=== PATIENT | female | born 1940 | race Caucasian/White ===

== ENCOUNTER → 2016-06-24 | Outpatient (REF) | payer MEDICARE, OTHER ==
[2016-06-24 17:56] LABS: MEAN CORPUSCULAR HEMOGLOBIN 29.6 pg (27.0-33.0); MEAN CORPUSCULAR HGB CONC 33.6 g/dl (32.0-36.5); MEAN CORPUSCULAR VOLUME 87.9 fl (80.0-96.0); RED CELL DISTRIBUTION WIDTH 12.9 % (11.5-14.5); WHITE BLOOD COUNT 5.8 K/mm3 (4.0-10.0)
[2016-06-24 18:35] LABS: ALBUMIN 3.8 GM/DL (3.2-5.2); ALBUMIN/GLOBULIN RATIO 1.65 (1.00-1.93); ALKALINE PHOSPHATASE 99 U/L (45-117); ALT/SGPT 32 U/L (12-78); ANION GAP 7 MEQ/L (8-16); AST/SGOT 21 U/L (15-37); BILIRUBIN,TOTAL 0.5 MG/DL (0.2-1.0); BLOOD UREA NITROGEN 24 MG/DL (7-18); CALCIUM LEVEL 10.1 MG/DL (8.8-10.2); CARBON DIOXIDE LEVEL 31 MEQ/L (21-32); CHLORIDE LEVEL 105 MEQ/L (98-107); CHOLESTEROL LEVEL 126 MG/DL (<200); CREATININE FOR GFR 0.77 MG/DL (0.55-1.02); GLOMERULAR FILTRATION RATE > 60.0 (>39); GLUCOSE, FASTING 90 MG/DL (83-110); POTASSIUM SERUM 4.4 MEQ/L (3.5-5.1); SODIUM LEVEL 143 MEQ/L (136-145); TOTAL PROTEIN 6.1 GM/DL (6.4-8.2); TRIGLYCERIDES LEVEL 122 MG/DL (<150)
== END ==
LOC: M LABDRAWC 16:27
PROVIDERS: ATTEND Internal Medicine Cardiovascular Disease
DX: I11.9 Hypertensive heart disease without heart failure (principal); E78.00 Pure hypercholesterolemia, unspecified; I25.10 Atherosclerotic heart disease of native coronary artery without angina pectoris

== ENCOUNTER → 2016-08-18 | Outpatient (REF) | payer MEDICARE, OTHER ==
[2016-08-18 13:53] LABS: BACTERIA, URINE LARGE AMOUNT; RBC, URINE NONE SEEN /hpf (0-3); SQUAMOUS EPITHELIAL CELL URINE MOD AMOUNT /hpf (SMALL AMT)
[2016-08-18 13:54] LABS: TRANSITIONAL EPI CELLS, URINE SMALL AMOUNT /hpf; WBC, URINE 15-20 /hpf (0-3)
[2016-08-18 13:55] LABS: MICROSCOPIC EXAM PERFORMED
== END ==
LOC: M SMT 12:51
PROVIDERS: ATTEND Specialist
DX: R39.15 Urgency of urination (principal); R35.0 Frequency of micturition; N34.2 Other urethritis
CPT/HCPCS: 51798; 81002; 87086; G0463

== ENCOUNTER → 2016-08-20 | Outpatient (REF) | payer MEDICARE, OTHER | LOC: M SMT 16:44 | PROVIDERS: ATTEND Specialist | DX: R35.0 Frequency of micturition (principal) ==

== ENCOUNTER → 2016-09-02 | Outpatient (REF) | payer MEDICARE, OTHER | LOC: M SMT 15:31 | PROVIDERS: ATTEND Specialist | DX: N39.0 Urinary tract infection, site not specified (principal) ==

== ENCOUNTER → 2016-09-09 | Outpatient (CLI) | payer MEDICARE, OTHER ==
[2016-09-09 18:07] LABS: ANION GAP 5 MEQ/L (8-16); BLOOD UREA NITROGEN 23 MG/DL (7-18); CALCIUM LEVEL 9.8 MG/DL (8.8-10.2); CARBON DIOXIDE LEVEL 31 MEQ/L (21-32); CHLORIDE LEVEL 105 MEQ/L (98-107); CREATININE FOR GFR 0.81 MG/DL (0.55-1.02); GLOMERULAR FILTRATION RATE > 60.0 (>39); GLUCOSE, FASTING 97 MG/DL (83-110); POTASSIUM SERUM 4.3 MEQ/L (3.5-5.1); SODIUM LEVEL 141 MEQ/L (136-145)
== END ==
LOC: M SMT 14:41
PROVIDERS: ATTEND Specialist
DX: R35.0 Frequency of micturition (principal)
CPT/HCPCS: 36415; 80048; G0463

== ENCOUNTER → 2016-09-19 | Outpatient (CLI) | payer MEDICARE, OTHER ==
[~2016-09-19] MED LIST: ISOVUE-370 76% 100ML VIAL (Q9967) As Ordered ONE
--- NOTE | 2016-09-19 14:35 | REP ---
CT ABDOMEN AND PELVIS WITHOUT AND WITH CONTRAST (CT UROGRAM) 09/19/2016. Clinical history: Urinary frequency, urethritis, cystitis, right lower quadrant abdominal abscess. Technique: Scanning through the abdomen and pelvis before IV contrast with a bolus of 100 mL Isovue 370 scanning through the abdomen pelvis and with 8 minute delay rescanning. Coronal and sagittal reconstructions for CT urogram performed. Findings:CT abdomen: The lung bases are clear. Heart is not enlarged. There is no pericardial thickening or effusion. There is a small hiatal hernia present. The liver, spleen and adrenal glands are without a mass. Right hepatic lobe is mildly enlarged with a vertical diameter of 18.6 cm. There is no focal hepatic lesion, splenic mass or splenomegaly. Gallbladder shows no calcified stone or mass. No adjacent ascites. Stomach shows some thickening of the antral wall and into the first portion of duodenum, but no mass or other wall thickening likely suggests some mild gastritis or duodenitis. Moderate stool throughout the colon from rectum to sigmoid without colitis or diverticulitis. Small bowel loops fluid-filled but not abnormally dilated. Lung window review of all CT slices abdomen and pelvis show no free air or perforation. The aorta has tortuosity and calcifications without aneurysm or dissection. Pancreas shows no mass. The pancreatic duct is about 2 mm. There is no ventral hernia or umbilical hernia. The right kidney shows an upper pole cyst at 2.5 cm. There is no other cyst, solid mass, stone, hydronephrosis or hydroureter. No ureteral dilatation or stone on either side. The bone windows show facet arthritis lumbar spine with vacuum phenomenon at disc space narrowing at L2-3 and L3-4 narrowing at all other levels and lesser degenerative changes at those. There are also thoracic degenerative disc changes without compression deformity. No spondylolysis or spondylolisthesis. The visualized ribs were unremarkable. CT pelvis: There is a sclerotic focus in the acetabular roof on the left which could be a bone island. Remainder of the iliac bones showed only a tiny bone island in the right with the acetabuli showing rim osteophyte formation. Pubic rami and pubic symphysis were with only minimal degenerative change. Hips without fracture and only minor degenerative change. There is some focal thickening of the bladder wall posteriorly without any bladder stone or mass. The distal ureters show normal course and caliber to the bladder and without stone and show normal filling with contrast on the delayed images and reconstructed urogram. There is no ventral or inguinal hernia nor pathologic sized inguinal adenopathy. Diverticulosis distal left colon and sigmoid without diverticulitis, colitis, stricture or mass. Small bowel loops grossly intact. There are a few pelvic phleboliths evident. Impression: 1. Some thickening irregularity posterior wall of the bladder with its irregular margins. The uterus is grossly intact and anteverted. 2. No definite adnexal mass or pelvic free fluid and no adenopathy or free air. 3. Diverticulosis without diverticulitis distal left colon and sigmoid. 4. No hydronephrosis, hydroureter, renal or ureteral stone, solid or cystic mass in the kidneys or other acute finding. Mild to moderate constipation. Degenerative changes in the spine. Simple cyst upper pole right kidney. Signed by Angelito Hodge MD 09/19/2016 03:07 P
== END ==
LOC: M RAD 10:33
PROVIDERS: ATTEND Specialist
DX: R35.0 Frequency of micturition (principal); R10.9 Unspecified abdominal pain
CPT/HCPCS: 74178; Q9967

== ENCOUNTER → 2016-10-08 | Outpatient (REF) | payer MEDICARE, OTHER | LOC: M SMT 17:19 | PROVIDERS: ATTEND Specialist | DX: R35.0 Frequency of micturition (principal) | CPT/HCPCS: 52000; 87088; 87186; 88108; G0463 ==

== ENCOUNTER → 2016-10-09 | Outpatient (REF) | payer MEDICARE, OTHER ==
[2016-10-09 12:51] LABS: VITAMIN B12 LEVEL 332 PG/ML (247-911)
[2016-10-09 12:56] LABS: FREE T4 1.02 NG/DL (0.76-1.46)
== END ==
LOC: M SFHCCLAY 09:12
PROVIDERS: ATTEND Family Medicine
DX: R41.3 Other amnesia (principal)
CPT/HCPCS: 82607; 84439; 84443; 86780; G0463

== ENCOUNTER → 2016-11-17 | Outpatient (CLI) | payer MEDICARE, OTHER ==
--- NOTE | 2016-11-17 10:17 | REP ---
KUB ABDOMEN AND PELVIS: Two KUB films of abdomen and pelvis performed. Moderate fecal material is seen throughout the colon. No significantly dilated small bowel loops are seen. There are multiple phleboliths in the pelvis. Focal sclerotic density in the left inferior iliac bone probably represents a bone island. There are degenerative changes of the spine with curvature toward the right. IMPRESSION: Moderate fecal retention.
== END ==
LOC: M CLY 08:28
PROVIDERS: ATTEND Family Medicine
DX: K59.09 Other constipation (principal)

== ENCOUNTER → 2017-05-13 | Outpatient (REF) | payer MEDICARE, OTHER | LOC: M SFHCCLAY 08:43 | PROVIDERS: ATTEND Family Medicine | DX: E53.8 Deficiency of other specified B group vitamins (principal) ==

== ENCOUNTER → 2017-07-09 | Outpatient (REF) | payer MEDICARE, BC ==
[2017-07-09 12:38] LABS: HEMATOCRIT 39.8 % (36.0-47.0); HEMOGLOBIN 12.8 g/dl (12.0-16.0); MEAN CORPUSCULAR HEMOGLOBIN 28.4 pg (27.0-33.0); MEAN CORPUSCULAR HGB CONC 32.2 g/dl (32.0-36.5); MEAN CORPUSCULAR VOLUME 88.4 fl (80.0-96.0); PLATELET COUNT, AUTOMATED 293 10^3/uL (150-450); RED CELL DISTRIBUTION WIDTH 14.1 % (11.5-14.5); WHITE BLOOD COUNT 5.6 10^3/uL (4.0-10.0)
[2017-07-09 13:54] LABS: ALBUMIN 3.7 GM/DL (3.2-5.2); ALBUMIN/GLOBULIN RATIO 1.42 (1.00-1.93); ALKALINE PHOSPHATASE 121 U/L (45-117); ALT/SGPT 32 U/L (12-78); ANION GAP 5 MEQ/L (8-16); AST/SGOT 24 U/L (7-37); BILIRUBIN,TOTAL 0.4 MG/DL (0.2-1.0); BLOOD UREA NITROGEN 22 MG/DL (7-18); CALCIUM LEVEL 9.3 MG/DL (8.8-10.2); CARBON DIOXIDE LEVEL 31 MEQ/L (21-32); CHLORIDE LEVEL 105 MEQ/L (98-107); CHOLESTEROL LEVEL 125 MG/DL (<200); CHOLESTEROL RISK RATIO 2.118 (<5); CREATININE FOR GFR 0.75 MG/DL (0.55-1.30); GLOMERULAR FILTRATION RATE > 60.0 (>39); GLUCOSE, FASTING 96 MG/DL (70-100); HDL CHOLESTEROL 59 MG/DL (>40); LDL CHOLESTEROL 48.8 MG/DL (<100); NON-HDL-C 66 MG/DL; POTASSIUM SERUM 4.7 MEQ/L (3.5-5.1); SODIUM LEVEL 141 MEQ/L (136-145); TOTAL PROTEIN 6.3 GM/DL (6.4-8.2); TRIGLYCERIDES LEVEL 86 MG/DL (<150)
== END ==
LOC: M LABDRAWC 11:32
DX: E78.00 Pure hypercholesterolemia, unspecified (principal); I25.10 Atherosclerotic heart disease of native coronary artery without angina pectoris; I11.9 Hypertensive heart disease without heart failure
CPT/HCPCS: 80053

== ENCOUNTER → 2017-11-27 | Outpatient (REF) | payer MEDICARE, BC ==
[2017-12-03 10:13] LABS: VITAMIN B1 LEVEL WHOLE BLOOD 144.8 nmol/L (66.5-200.0); VITAMIN B6,PYRIDOXAL PHOSPHATE 7.7 ug/L (2.0-32.8); VITAMIN E(ALPHA TOCOPHEROL) 15.4 mg/L (9.0-29.0); VITAMIN E(GAMMA TOCOPHEROL) 0.3 mg/L (0.5-4.9)
== END ==
LOC: M LABDRAWC 16:13
DX: E53.8 Deficiency of other specified B group vitamins (principal); E07.9 Disorder of thyroid, unspecified; F03.90 Unspecified dementia, unspecified severity, without behavioral disturbance, psychotic disturbance, mood disturbance, and anxiety
CPT/HCPCS: 84446

== ENCOUNTER → 2018-03-29 | Outpatient (REF) | payer MEDICARE, BC ==
[2018-03-29 12:33] LABS: HEMATOCRIT 42.5 % (36.0-47.0); HEMOGLOBIN 13.6 g/dl (12.0-15.5); MEAN CORPUSCULAR HEMOGLOBIN 28.8 pg (27.0-33.0); MEAN CORPUSCULAR VOLUME 89.9 fl (80.0-96.0); PLATELET COUNT, AUTOMATED 284 10^3/uL (150-450); RED BLOOD COUNT 4.73 10^6/uL (4.00-5.40); RED CELL DISTRIBUTION WIDTH 13.9 % (11.5-14.5); WHITE BLOOD COUNT 6.6 10^3/uL (4.0-10.0)
[2018-03-29 12:55] LABS: ALBUMIN 3.5 GM/DL (3.2-5.2); ALBUMIN/GLOBULIN RATIO 1.25 (1.00-1.93); ALKALINE PHOSPHATASE 127 U/L (45-117); ALT/SGPT 29 U/L (12-78); ANION GAP 6 MEQ/L (8-16); AST/SGOT 23 U/L (7-37); BILIRUBIN,TOTAL 0.4 MG/DL (0.2-1.0); BLOOD UREA NITROGEN 20 MG/DL (7-18); CALCIUM LEVEL 9.5 MG/DL (8.8-10.2); CARBON DIOXIDE LEVEL 30 MEQ/L (21-32); CHLORIDE LEVEL 107 MEQ/L (98-107); CHOLESTEROL LEVEL 119 MG/DL (<200); CHOLESTEROL RISK RATIO 2.479 (<5); CREATININE FOR GFR 0.84 MG/DL (0.55-1.30); GLOMERULAR FILTRATION RATE > 60.0 (>39); GLUCOSE, FASTING 97 MG/DL (70-100); HDL CHOLESTEROL 48 MG/DL (>40); LDL CHOLESTEROL 57 MG/DL (<100); NON-HDL-C 71 MG/DL; POTASSIUM SERUM 4.8 MEQ/L (3.5-5.1); SODIUM LEVEL 143 MEQ/L (136-145); TOTAL PROTEIN 6.3 GM/DL (6.4-8.2); TRIGLYCERIDES LEVEL 71 MG/DL (<150)
== END ==
LOC: M SFHCCLAY 08:18
DX: I25.10 Atherosclerotic heart disease of native coronary artery without angina pectoris (principal); M81.0 Age-related osteoporosis without current pathological fracture; G30.1 Alzheimer's disease with late onset
CPT/HCPCS: 84443

== ENCOUNTER → 2019-02-01 | Outpatient (REF) | payer MEDICARE, BC ==
[2019-02-02 12:08] LABS: PTH INTACT 119.6 PG/ML (18.5-88.0); TOTAL 25(OH) VITAMIN D 32.2 NG/ML (30.0-100.0)
== END ==
LOC: M SFHCCLAY 14:09
PROVIDERS: ATTEND Family Medicine
DX: M81.0 Age-related osteoporosis without current pathological fracture (principal)
CPT/HCPCS: 82306; 82310; 83970; G0463

== ENCOUNTER → 2019-04-01 | Outpatient (REF) | payer MEDICARE, BC ==
[2019-04-01 18:04] LABS: HEMATOCRIT 41.8 % (36.0-47.0); HEMOGLOBIN 13.2 g/dl (12.0-15.5); MEAN CORPUSCULAR HEMOGLOBIN 29.1 pg (27.0-33.0); MEAN CORPUSCULAR HGB CONC 31.6 g/dl (32.0-36.5); MEAN CORPUSCULAR VOLUME 92.3 fl (80.0-96.0); PLATELET COUNT, AUTOMATED 273 10^3/uL (150-450); RED BLOOD COUNT 4.53 10^6/uL (4.00-5.40); WHITE BLOOD COUNT 6.7 10^3/uL (4.0-10.0)
[2019-04-01 18:10] LABS: BLOOD UREA NITROGEN 16 MG/DL (7-18); CALCIUM LEVEL 9.5 MG/DL (8.8-10.2); CARBON DIOXIDE LEVEL 32 MEQ/L (21-32); CHLORIDE LEVEL 105 MEQ/L (98-107); CREATININE FOR GFR 0.79 MG/DL (0.55-1.30); GLOMERULAR FILTRATION RATE > 60.0 (>32); GLUCOSE, FASTING 82 MG/DL (70-100); POTASSIUM SERUM 4.3 MEQ/L (3.5-5.1); SODIUM LEVEL 141 MEQ/L (136-145)
== END ==
LOC: M LABDRAWC 17:13
PROVIDERS: ATTEND Physician Assistant
DX: I25.10 Atherosclerotic heart disease of native coronary artery without angina pectoris (principal); I11.9 Hypertensive heart disease without heart failure; Z23 Encounter for immunization
CPT/HCPCS: 36415; 80048; 85027; 90682; G0008

== ENCOUNTER → 2019-07-11 | Outpatient (REF) | payer MEDICARE, BC ==
[2019-07-11 17:23] LABS: ALBUMIN 3.8 GM/DL (3.2-5.2); ALT/SGPT 27 U/L (12-78); BILIRUBIN,TOTAL 0.5 MG/DL (0.2-1.0); BLOOD UREA NITROGEN 19 MG/DL (7-18); CALCIUM LEVEL 9.5 MG/DL (8.8-10.2); CARBON DIOXIDE LEVEL 31 MEQ/L (21-32); CHLORIDE LEVEL 104 MEQ/L (98-107); CHOLESTEROL LEVEL 132 MG/DL (<200); CREATININE FOR GFR 0.84 MG/DL (0.55-1.30); GLOMERULAR FILTRATION RATE > 60.0 (>32); GLUCOSE, FASTING 84 MG/DL (70-100); HDL CHOLESTEROL 66 MG/DL (>40); LDL CHOLESTEROL 52 MG/DL (<100); NON-HDL-C 66 MG/DL; POTASSIUM SERUM 4.6 MEQ/L (3.5-5.1); SODIUM LEVEL 140 MEQ/L (136-145); TOTAL PROTEIN 6.5 GM/DL (6.4-8.2); TRIGLYCERIDES LEVEL 68 MG/DL (<150)
== END ==
LOC: M SFHCCLAY 12:04
PROVIDERS: ATTEND Family Medicine
DX: I25.10 Atherosclerotic heart disease of native coronary artery without angina pectoris (principal); I69.30 Unspecified sequelae of cerebral infarction; G30.1 Alzheimer's disease with late onset; F02.80 Dementia in other diseases classified elsewhere, unspecified severity, without behavioral disturbance, psychotic disturbance, mood disturbance, and anxiety

== ENCOUNTER 2020-05-22 15:39 | Inpatient (IN) | payer MEDICARE, BC ==
[~2020-05-22] VITALS: Ht 157.5 cm; Wt 58.9 kg
[2020-05-22 17:48] LABS: BASO # 0.1 10^3/uL (0.0-0.2); BASO % 0.8 % (0.0-1.0); EOS # 0.1 10^3/uL (0.0-0.5); EOS % 1.8 % (0.0-3.0); HEMOGLOBIN 13.8 g/dl (12.0-15.5); LYMPH # 1.3 10^3/uL (1.5-5.0); LYMPH % 16.6 % (24.0-44.0); MEAN CORPUSCULAR HEMOGLOBIN 28.1 pg (27.0-33.0); MEAN CORPUSCULAR HGB CONC 31.4 g/dl (32.0-36.5); MEAN CORPUSCULAR VOLUME 89.6 fl (80.0-96.0); MONO # 0.7 10^3/uL (0.0-0.8); MONO % 8.3 % (0.0-5.0); NEUTROPHILS # 5.7 10^3/uL (1.5-8.5); NEUTROPHILS % 72.2 % (36.0-66.0); PLATELET COUNT, AUTOMATED 287 10^3/uL (150-450); RED BLOOD COUNT 4.91 10^6/uL (4.00-5.40); WHITE BLOOD COUNT 7.9 10^3/uL (4.0-10.0)
--- NOTE | 2020-05-22 17:57 | REP ---
INDICATION: AMS. COMPARISON: None. TECHNIQUE: Single AP view performed portably with the patient upright. FINDINGS: The lung ferrer are clear. Cardiac size is normal. The luc, mediastinum and skeletal structures are unremarkable except for thoracic scoliosis.. IMPRESSION: Essentially negative PA and lateral chest <Electronically signed by Bethel Alejo > 05/22/20 [id number]
[2020-05-22 18:15] LABS: BLOOD UREA NITROGEN 16 MG/DL (7-18); CALCIUM LEVEL 9.7 MG/DL (8.8-10.2); CARBON DIOXIDE LEVEL 30 MEQ/L (21-32); CHLORIDE LEVEL 107 MEQ/L (98-107); CK-MB VALUE MASS 3.2 NG/ML (<3.6); CPK CREATINE PHOSPHOKINASE 96 U/L (26-192); CREATININE FOR GFR 0.87 MG/DL (0.55-1.30); GLOMERULAR FILTRATION RATE > 60.0 (>32); GLUCOSE, FASTING 97 MG/DL (70-100); MB/CK RELATIVE INDEX 3.33 (< OR =4); POTASSIUM SERUM 4.3 MEQ/L (3.5-5.1); SODIUM LEVEL 142 MEQ/L (136-145); THYROID STIMULATING HORMONE 0.753 uIU/ML (0.358-3.740); TROPONIN I 0.02 NG/ML (< 0.10)
[2020-05-22] MEDS ORDERED: CYAN100050 PO (19:02)
[2020-05-22] MEDS ORDERED: LISI-542 PO (19:02)
[2020-05-22] MEDS ORDERED: D31000TA2 PO (19:02)
[2020-05-22] MEDS ORDERED: DONE10TA90 PO (19:02)
[2020-05-22] MEDS ORDERED: ASPI1TAB8 PO (19:02)
[2020-05-22] MEDS ORDERED: ATOR80TA59 PO (19:02)
[2020-05-22] MEDS ORDERED: VITA-158 PO (19:02)
[2020-05-22] MEDS ORDERED: OCUVTAB4 PO (19:02)
[2020-05-22] MEDS ORDERED: QUET5TAB PO (19:08)
[2020-05-22] MEDS ORDERED: META28.32 PO (19:08)
[2020-05-22] MEDS ORDERED: MEMA10TA19 PO (19:08)
[2020-05-22] MEDS ORDERED: MIRA3350 PO (19:08)
[2020-05-22 20:04] LABS: RSV AMPLIFICATION NEGATIVE (NEGATIVE)
--- NOTE | 2020-05-22 20:45 | HPEPDOC ---
[facility] Medical History & Physical Date of Admission May 22, 2020 Date of Service: May 22, 2020 Primary Care Physician: Raj Holm MD Attending Physician: DANNA MIMS MD History and Physical CHIEF COMPLAINT: Worsening behavioral problems with progressing dementia HISTORY OF PRESENT ILLNESS: Rosetta is an 80yo female w/ notable PMHx of dementia, cad s/p AR w/ LAD stents, htn, osteoporosis s/p non-displaced hip fracture, who presented to the ED on 05/22/2020 after being brought in by her Demar due to increasing frequency of behavioral problems in the setting of progressive dementia. For the past 2-3 years, patient's overall function has steadily decreased, while her dementia symptoms have progressed. Her pcp, Dr. Holm, along with her neurologist, Dr. Vicente, currently diagnosed patient with dementia and epic collaborating on treatment. In the recent past, she was started on Seroquel and had been taking three quarters of a 50 mg tablet daily. Seroquel at seem to work, but patient continued to have contentious episodes, most associated with personal care (bat alex, dressing) and just 4 days ago (05/18/20), Dr. Holm recommended patient switch to a full dose 50 mg Seroquel tablets daily. Patient's reports that initially going to the full dose work for couple days, but then patient's symptoms worsened. For example, early this morning after taking her Seroquel dose, she had very positive experience with no symptoms while being seen at [facility], but soon after returning home, she started to become combative and symptomatic again, repeatedly stating, "I don't want to live here anymore." Just prior to going to the full 50 mg dose, patient spontaneously vacated her home and walked aimlessly in the neighborhood before being brought back to the house by local police. Per the patient's , PE, along with the patient's 3 adult children, all recognize patient's deterioration and are in favor of hospitalization and possible placement. The patient's provided most of HPI. Upon presentation to the ED, patient was hypertensive with initial blood pressure 190/102, that's subsequently improved to 171/85. She is also afebrile and slightly bradycardic. CBC and BMP were relatively unremarkable, while chest x-ray was negative for acute pathology, TSH was wnl, and cardiac markers were unremarkable. A urinalysis was positive for UTI with pending reflex culture. She was subsequently admitted under the care of the hospitalist service primarily for continued monitoring in the setting of her encephalopathy secondary to progressive dementia and her evaluation for potential placement/home health options. Of note, patient's Demar reports that he is both her healthcare proxy and power of corporate associate attorney, and the patient at this point is full code. PAST MEDICAL HISTORY: Coronary artery disease, status post myocardial infarction on 01/26/2015, with stent placement x2 in left anterior descending coronary artery. History of falls with last known fall occurring 5 months ago (12/08/19) Hypertension Dementia secondary to presumed Alzheimer's disease on both amantadine and donepezil Osteoporosis status post nondisplaced hip fracture. Vitamin D deficiency. History of tubular adenomas on October 2013. Colonoscopy. 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 Sebaceous cyst. Rectocele with use of vaginal pessary as recommended by gynecology In addition to her PCP and neurologist, she also falls as outpatient with reports developer in [place] (Dr. Marie), ophthalmology (Dr. 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 Bilateral cataract surgery in January and February 2010. Unspecified back surgery 2000. Detached retina surgery on 08/30/12 SOCIAL HISTORY: Patient is and currently lives with her Demar on [address] in the [facility]. She and her have 3 adult children - - 2 of whom live in [place] and the third lives in [facility]. No current or former history of tobacco product, alcohol, or illicit drug use. FAMILY HISTORY: Father: , heart attack while in his 70s. Mother: , live to mid 80s, CVA and hypertension Patient has 2 brothers and one sister. Patient has 2 daughters and 1 son. One daughter had unspecified cancers. Throat pathology, which was addressed and subsequently resolved. ALLERGIES: Please see below. REVIEW OF SYSTEMS: *Important to take pt's ROS responses in context of her progressing dementia CONSTITUTIONAL: Denies recent unintentional change in weight, fevers, chills, or night sweats EYES: Denies visual changes or eye pain ENT: Denies runny nose, ear pain, tinnitus, sore throat, dysphagia,or odynophasia CARDIOVASCULAR: Denies chest pain, chest pressure, or palpitations. RESPIRATORY: Denies cough, shortness of breath, or sputum production GASTROINTESTINAL: Denies abdominal pain, nausea, vomiting, diarrhea, constipation, or blood in the stool GENITOURINARY: Denies hematuria or dysuria NEUROLOGY: Denies dizziness, lightheadedness, gait instability/balance issues, any changes to sight/smell/hearing/taste, or LOC HEMATOLOGIC: Denies easy bleeding or bruising LYMPHATIC: Denies any new lumps or bumps anywhere HOME MEDICATIONS: Please see below. PHYSICAL EXAMINATION: VITAL SIGNS: Temperature 98.7, pulse 80, respiratory rate , blood pressure, 171/85, pulse oximetry 98 % on room air. GENERAL APPEARANCE: Elderly female who appears restless at times d uring exam, particularly when addressing her or when her speaks. She is calm and significantly more approachable when we speak with her directly and the is not involved. She is alert and oriented to self only and struggles to maintain thought and form coherent, articulate responses to non- basic/standard questions. No acute distress. HEENT: Normocephalic, atraumatic. Noninjected, anicteric sclera. No significant conjunctival pallor appreciated. Mucous membranes appear somewhat dry. There is no pharyngeal erythema or exudate. NECK: Trachea is midline. Neck is supple. No lymphadenopathy appreciated. CARDIOVASCULAR: Regular rate and regular rhythm. Normal S1, S2. No murmurs appreciated. LUNGS: Clear to auscultation bilaterally with no adventitious breath sounds appreciated. Good respiratory effort. Symmetric chest expansion. Breathing room air. Speaking full sentences. ABDOMEN: Normoactive bowel sounds throughout. Soft, nontender and nondistended. No guarding or rigidity. MUSCULOSKELETAL: 5 out of 5 muscle strength testing of upper and lower extremities bilaterally. EXTREMITIES: Bilateral lower extremities are free of edema. There is some midshin anterior tibial hyperpigmentation bilaterally consistent with prior contusion/ecchymosis.. There are both MCP and DIP arthritic changes of hands bilaterally. NEUROLOGICAL: Patient is awake, alert and oriented to self only. She struggles to complete train of thought and articulate answers to most non-basic exam qu estions and commands. She also struggles with exam commands that involved some deeper thought such as dysdiadochokinesis and [id number] testing. She is ambulating without any issue. Speech is not dysarthric. Short-term memory recall is poor as well. No cogwheel rigidity, resting tremor, or abnormal facial movements were appreciated. PSYCHIATRIC: Verbally confrontational towards , but is pleasant with all others. When not interacting with , her mood is pleasant. LABORATORY DATA: Please see below. IMAGING: Upright (1 view) portable CXR, 05/22/2020- FINDINGS: The lung ferrer are clear. Cardiac size is normal. The luc, mediastinum and skeletal structures are unremarkable except for thoracic scoliosis.. IMPRESSION: Essentially negative PA and lateral chest MICROBIOLOGY: Please see below. ASSESSMENT & PLAN: 80yo female w/ notable medical h/o progressive dementia 2/2 presumed Alzheimer's, CAD s/p AR and LAD stents, htn, osteoporosis who presented to [facility] ED on 05/22/2020 after being brought in by her due to increased frequency of behavioral issues related to progressive dementia. She had been having some success as outpatient with Seroquel but symptoms recently have continued to recur and family is concerned for patient safety and agreement that evaluation for possible placement is warranted. #Encephalopathy, likely secondary to progressive dementia from Alzheimer's disease -home seroquel was not continued upon admission as pt continues to have increased frequency of behavior sxs. Olanzapine was ordered to perhaps better address behaviors. -while dementia from presumed Alzheimer's has likely progressed to moderate/severe ramge, home donepezil and memantine were continued. Upon discharge/placement, warranted to assess efficacy and continuation of outpt AD medications in setting of progressing/advanced dementia. -Pt remained calm upon arrival to the floor and was resting without issue. Should she have issues maintaining or initiating sleep, consider adding rozerem -sitter ordered -PFS/Case management consult placed to assess for possible placement/care options upon discharge -Vitamin B1, B12, and RPR ordered to rule-out as possible etiologies contributing to dementia. In ED, lytes and TSH were wnl, while CXR was unremarkable. UA showed UTI with reflex UCx pending; pt asymptomatic at this time and this could also represent chronic colonization -in setting of increased behaviors and h/o falls, fall risk precautions and assisted ambulation ordered -due to advanced dementia pts sometimes being unable to articulate pain sxs, prn tylenol ordered #Hypertension -Pt has h/o htn for which she takes 5 mg lisinopril as outpt; this was continued upon admission and scheduled low-dose amlodipine added as well. -BMP, lytes and TSH were unremarkable upon presentation -2g Na diet ordered #Asymptomatic UTI -UA showed positive nitrites and 1+ UBac. UCx is pending. Pt is afebrile and has NL WBC. With advanced dementia in elderly female without sxs, pharmacotherapy deferred at this time. -Upon review, no lifetime summary of chronic UCx results in emr. #CAD s/p AR and LAD stent -Home high intensity statin and daily 81 mg ASA continued #H/o Osteoporosis s/p non-displaced hip fracture with vitamin D deficiency -pt also has h/o falls, so fall risk precautions and assisted ambulation only ordered #DVT prophylaxis: Lovenox Disposition: Pending social work nurse/PFS evaluation and assistance in pursuing possible placement/home health Vital Signs Vital Signs Date Time Temp Pulse Resp B/P (MAP) Pulse Ox O2 Delivery O2 Flow Rate FiO2 05/22/20 18:24 57 05/22/20 17:00 05/22/20 15:40 98.7 20 98 Room Air Laboratory Data Labs 24H Laboratory Tests 2 05/22/20 17:33: Anion Gap 5L, Glomerular Filtration Rate > 60.0, Calcium Level 9.7, Total Creatine Kinase 96, Creatine Kinase MB 3.2, Creatine Kinase MB Relative Index 3.33, Troponin I 0.02, Thyroid Stimulating Hormone (TSH) 0.753 05/22/20 17:34: Immature Granulocyte % (Auto) 0.3, Neutrophils (%) (Auto) 72.2H, Lymphocytes (%) (Auto) 16.6L, Monocytes (%) (Auto) 8.3H, Eosinophils (%) (Auto) 1.8, Basophils (%) (Auto) 0.8, Neutrophils # (Auto) 5.7, Lymphocytes # (Auto) 1.3L, Monocytes # (Auto) 0.7, Eosinophils # (Auto) 0.1, Basophils # (Auto) 0.1, Nucleated Red Blood Cells % (auto) 0.0, Urine Color YELLOW, Urine Appearance CLEAR, Urine pH 5.0, Urine Specific [place] 1.021, Urine Protein 1+H, Urine Glucose (UA) NEGATIVE, Urine Ketones NEGATIVE, Urine Blood NEGATIVE, Urine Nitrite POSITIVEH, Urine Bilirubin NEGATIVE, Urine Urobilinogen 0.2, Urine Leukocyte Esterase NEGATIVE, Urine WBC (Auto) 10H, Urine RBC (Auto) 0, Urine Hyaline Casts (Auto) 0, Urine Bacteria (Auto) 1+H, Urine Squamous Epithelial Cells 0, Urine Mucus (Auto) SMALL, Urine Sperm (Auto) 05/22/20 18:56: Coronavirus (COVID-19)(PCR) NEGATIVE, Influenza Type A (RT-PCR) NEGATIVE, Influenza Type B (RT-PCR) NEGATIVE, Respiratory Syncytial Virus (PCR) NEGATIVE CBC/BMP Laboratory Tests 05/22/20 17:33 05/22/20 17:34 Microbiology Microbiology 05/22/20 Urine Culture, Received Pending Home Medications Scheduled Ascorbic Acid (Vitamin C) 500 Mg Tablet, 500 MG PO DAILY Aspirin (Aspirin EC) 81 Mg Tablet.dr, 81 MG PO QHS Atorvastatin Calcium (Atorvastatin Calcium) 80 Mg Tablet, 80 MG PO QHS Cholecalciferol (Vitamin D3) (Vitamin D3) 1,000 Unit Tablet, 1,000 UNITS PO DAILY Cyanocobalamin (Vitamin B-12) (Vitamin B-12) 1,000 Mcg Tablet, 1,000 MCG PO QPM Donepezil HCl (Donepezil HCl) 10 Mg Tablet, 10 MG PO QHS Lisinopril (Lisinopril) 5 Mg Tablet, 5 MG PO QHS Memantine HCl (Memantine HCl) 10 Mg Tablet, 10 MG PO BID Polyethylene Glycol 3350 (Miralax) 119 Gm Powder, 6 GM PO DAILY dilute in 8 ounces of water or juice Psyllium Husk (with Sugar) (Metamucil Powder) 575 Gm Powder, 1 PKT PO BID Quetiapine Fumarate (Quetiapine Fumarate) 50 Mg Tablet, 50 MG PO BID TRIAL MEDICATION PER PT'S AND , HAS ONLY BEEN TAKING FOR A FEW DAYS Vit A/Vit C/Vit E/Zinc/Copper (Preservision Areds Tablet) 1 Each Tablet, 1 TAB PO BID Allergies Coded Allergies: No Known Allergies (Unverified , 05/22/20) A-FIB/CHADSVASC A-FIB History Current/History of A-Fib/PAF?: No Current PO Anticoag Therapy: No GME ATTESTATION GME ATTESTATION My faculty preceptor for this patient encounter was physically present during the encounter and was fully available. All aspects of the patient interview, examination, medical decision making process, and medical care plan development were reviewed and approved by the faculty preceptor. The faculty preceptor is aware and concurs with the plan as stated in the body of this note and will attest to such by his/her cosignature. ATTENDING NOTE TIME OF SERVICE 825PM is an 80 yr old w a hx of CAD w LAD stent, osteoporosis and Alzheimer's dementia who was brought to the hospital by her for evaluation because she has been displaying violent behavior and wandering. She was recently started on quetiapine for her dementia associated behavioral issues, but her doesn't feel like her behavior has improved. Her physical exam was unremarkable except for anxiety and teariness. CT of the head, chest xray, respiratory panel & TSH were unrevealing. She will be admitted for evaluation of encephalopathy likely due to worsening dementia, but we will r/o other acute causes. She also has uncontrolled HTN; her SBP was in the 190s on arrival in the ER Plan: admit to medical floor / switch from quetiapine 50mg BID to olanzapine 2.5 mg BID / f/u B1, B12 / f/u w PFS for possible placement / add amlodipine 2.5mg daily and c/w lisinopril 10mg PO QHS rest per ' H&P KENYETTA MENDES D.O. May 22, 2020 20:44 DANNA MIMS MD May 22, 2020 20:59
[2020-05-22] MEDS: ATORVASTATIN 20 MG TAB PO SCH (21:00)
[2020-05-22] MEDS: lisinopriL 5 MG TAB PO SCH (21:00)
[2020-05-22] MEDS: ASPIRIN 81 MG ENTERIC TAB PO SCH (21:00)
[2020-05-22] MEDS ORDERED: MAALOX 30 ML SUSP *UDC PO PRN (21:30)
[2020-05-22] MEDS ORDERED: ACETAMINOPHEN TAB 650MG DOSE (2X325MG) PO PRN (21:30)
[2020-05-22] MEDS ORDERED: MOM 30ML SUSPENSION UDC PO PRN (21:30)
[2020-05-22 22:15] LABS: VITAMIN B12 LEVEL 1458 PG/ML (247-911)
[2020-05-22 23:47] VITALS: BP 170/81
[2020-05-23] MEDS: OCUVITE 1 TAB PO SCH ×3 (00:04→20:03)
[2020-05-23] MEDS: MEMANTINE 5MG TABLET (NAMENDA) PO SCH ×3 (00:04→20:03)
[2020-05-23] MEDS: DONEPEZIL 5 MG TAB PO SCH ×2 (00:05→20:03)
[2020-05-23] MEDS: OLANZapine 2.5MG TABLET PO SCH ×3 (00:05→20:03)
[2020-05-23] MEDS: METAMUCIL (PSYLLIUM) PACKET PO SCH ×3 (00:05→20:02)
[2020-05-23 06:00] VITALS: BP 123/76
--- NOTE | 2020-05-23 07:50 | ECGEPIP ---
[facility] - ED Test Date: 2020-05-22 Pat Name: MILTON MATHIAS Department: Room: [place] [address] Gender: Female Ssn/Ssbn Assistant Navigator: NISREEN : 1940 Requested By: Brendon Mcdonald Order Number: [id number] Reading MD: Brendon Woods Measurements Intervals [place] Rate: 53 P: 46 OK: 171 QRS: -5 QRSD: 80 T: 22 QT: 425 QTc: 401 Interpretive Statements SINUS BRADYCARDIA NO PRIORS FOR COMPARISON Electronically Signed on 05-23-2020 7:50:02 EST by Brendon Woods
[2020-05-23] MEDS: ASCORBIC ACID 500 MG TAB PO SCH (09:28)
[2020-05-23] MEDS: VITAMIN D 1,000 INTERNATIONAL UNITS TABLET PO SCH (09:28)
[2020-05-23] MEDS: ENOXAPARIN 40MG/0.4ML SYRINGE (J1650 PER 10MG) SC SCH (09:28)
[2020-05-23] MEDS: MIRALAX *UNIT DOSE* 17GM PACKET PO SCH (09:28)
[2020-05-23] MEDS: VITAMIN B COMPLEX/VIT C CAP PO SCH (10:26)
--- NOTE | 2020-05-23 12:03 | IPNPDOC ---
Text Note Date of Service The patient was seen on 05/23/20. NOTE Subjective: Patient is an 80-year-old female with a PMHx of Dementia, CAD (Hx of VT, s/p LAD stent), HTN, Osteoporosis, who presented to the ER on 05/22 for increasing frequency of behavioral problems. Patient has been leaving the home roaming the streets and aggressive while at home. Patient has been on Seroquel as an outpatient, however, is having increasing difficulty with her ADLs at home. has brought her to the hospital for further evaluation and likely placement. Patient was seen and examined at the bedside. Patient denies any chest pain, shortness breath, palpitations, nausea, vomiting, abdominal pain or diarrhea. Patient appears to have good mobility. Patient is only oriented to person. Objective: Vitals (See below) General: Lying in bed, no acute distress, comfortable, Awake / Alert, Oriented to person only HEENT: NC, AT CVS: RRR, +S1S2 Lungs: Fair air entry b/l, -w/r/r Abdomen: Soft, non-distended, non-tender Extremities: - Edema, - Calf tenderness Assessment and plan: Confusion; likely 2/2 progressive dementia - Patient is oriented to person, not to place or time - No focal neurologic deficits noted on exam - Afebrile - Lab work does not reveal any significant source of infection - TSH noted / B12 noted / RPR negative - Folate pending - CXR 05/22: Essentially negative PA and lateral chest - c/w Olanzapine, Memantine and Donepezil - PFS on board; for likely placement HTN - BP well controlled - c/w Lisinopril / Amlodipine Asymptomatic UTI - Patient is asymptomatic - UA noted - Urine culture pending - Has followed up with urology in the past; - No antibiotics indicated at this time CAD s/p VT and LAD stent - c/w ASA 81, Atorvastatin Osteoporosis s/p non-displaced hip fracture with vitamin D deficiency - c/w Vitamin D DVT prophylaxis - c/w Lovenox Disposition: - PFS on board for likely placement VS,Fishbone, I+O VS, Fishbone, I+O Laboratory Tests 05/22/20 17:33 05/22/20 17:34 Vital Signs Date Time Temp Pulse Resp B/P (MAP) Pulse Ox O2 Delivery O2 Flow Rate FiO2 05/23/20 09:28 74 123/76 05/23/20 06:00 96.9 18 96 Room Air I&O- Last 24 Hours up to 6 AM 05/23/20 05:59 Intake Total 100 ml Output Total 75 ml Balance 25 ml PIETER PATEL MD May 23, 2020 12:03
[2020-05-23 14:00] VITALS: BP 123/73
[2020-05-23] MEDS ORDERED: OLAN2.5T25 PO (16:21)
[2020-05-23] MEDS: lisinopriL 5 MG TAB PO SCH (20:02)
[2020-05-23] MEDS: ASPIRIN 81 MG ENTERIC TAB PO SCH (20:02)
[2020-05-23] MEDS: ATORVASTATIN 20 MG TAB PO SCH (20:03)
[2020-05-23 22:00] VITALS: BP 110/70
[2020-05-24 06:00] VITALS: BP 129/78
[2020-05-24] MEDS ORDERED: AMLO25TA PO (09:27)
[2020-05-24] MEDS ORDERED: AMPI500C9 PO (09:40)
[2020-05-24] MEDS: VITAMIN B COMPLEX/VIT C CAP PO SCH (10:00)
[2020-05-24 10:01] VITALS: BP 129/78
[2020-05-24] MEDS: OCUVITE 1 TAB PO SCH (10:01)
[2020-05-24] MEDS: ASCORBIC ACID 500 MG TAB PO SCH (10:01)
[2020-05-24] MEDS: MEMANTINE 5MG TABLET (NAMENDA) PO SCH (10:01)
[2020-05-24] MEDS: OLANZapine 2.5MG TABLET PO SCH (10:01)
[2020-05-24] MEDS: MIRALAX *UNIT DOSE* 17GM PACKET PO SCH (10:02)
[2020-05-24] MEDS: VITAMIN D 1,000 INTERNATIONAL UNITS TABLET PO SCH (10:02)
[2020-05-24] MEDS: METAMUCIL (PSYLLIUM) PACKET PO SCH (10:02)
[2020-05-24] MEDS: ENOXAPARIN 40MG/0.4ML SYRINGE (J1650 PER 10MG) SC SCH (10:02)
--- NOTE | 2020-05-24 10:40 | DS.PDOC ---
Discharge Summary General Date of Admission May 22, 2020 at 19:12 Date of Discharge 05/24/2020 Discharge Summary PROCEDURES PERFORMED DURING STAY: [None]. ADMITTING DIAGNOSES / DISCHARGE DIAGNOSES: Confusion; likely 2/2 progressive dementia HTN Asymptomatic UTI CAD s/p AK and LAD stent Osteoporosis s/p non-displaced hip fracture with vitamin D deficiency DVT prophylaxis COMPLICATIONS/CHIEF COMPLAINT: Encephalopathy. HISTORY OF PRESENT ILLNESS: Patient is an 80-year-old female with a PMHx of Dementia, CAD (Hx of AK, s/p LAD stent), HTN, Osteoporosis, who presented to the ER on 05/22 for increasing frequency of behavioral problems. Patient has been leaving the home roaming the streets and aggressive while at home. Patient has been on Seroquel as an outpatient, however, is having increasing difficulty with her ADLs at home. has brought her to the hospital for further evaluation and possible placement. HOSPITAL COURSE: Confusion; likely 2/2 progressive dementia - Oriented only to person, not to place or time - No focal neurologic deficits noted on exam / Afebrile - Lab work does not reveal any significant source of infection - TSH / B12 / Folate noted / RPR negative - CXR 05/22: Essentially negative PA and lateral chest - c/w Olanzapine, Memantine and Donepezil - Extensive discussion with who reports that he will be taking his back home. He has made the necessary arrangements to provide care for her 29/12 and has made safety changes in the home so that she doesn't elope HTN - BP well controlled - c/w Lisinopril / Amlodipine Asymptomatic UTI - Patient is asymptomatic - UA noted; Urine culture: E. Coli - cast-sensitive - Urine culture pending - Has followed up with urology in the past CAD s/p AK and LAD stent - c/w ASA 81, Atorvastatin Osteoporosis s/p non-displaced hip fracture with vitamin D deficiency - c/w Vitamin D DVT prophylaxis - c/w Lovenox DISCHARGE MEDICATIONS: Please see below. ALLERGIES: Please see below. PHYSICAL EXAMINATION ON DISCHARGE: Vitals (See below) General: Lying in bed, remains comfortable, Awake / Alert, remains oriented to person alone, not to place or time HEENT: NC, AT CVS: +S1S2 Lungs: Fair air entry b/l, no appreciable wheezing, rhonchi or rales Abdomen: Soft, non-distended, non-tender Extremities: No evidence of edema, - Calf tenderness LABORATORY DATA: Please see below. ACTIVITY: [As tolerated]. DISCHARGE PLAN: Follow-up with primary care provider within the next 7 days Remain compliant with treatment plan and medications Return to the ER if you experience problems DISPOSITION: Home with services DISCHARGE CONDITION: [Stable]. TIME SPENT ON DISCHARGE: 35 minutes. Vital Signs/I&Os Vital Signs Date Time Temp Pulse Resp B/P (MAP) Pulse Ox O2 Delivery O2 Flow Rate FiO2 05/24/20 10:01 63 129/78 05/24/20 06:00 97.2 16 93 Room Air I&O- Last 24 Hours up to 6 AM 05/24/20 06:00 Intake Total 1020 ml Output Total 0 ml Balance 1020 ml Microbiology Microbiology 05/22/20 Urine Culture - Final, Complete Escherichia Coli Discharge Medications Scheduled Amlodipine Besylate (Amlodipine Besylate) 2.5 Mg Tablet, 2.5 MG PO DAILY Ampicillin Trihydrate (Ampicillin Trihydrate) 500 Mg Capsule, 1 CAP PO TID Ascorbic Acid (Vitamin C) 500 Mg Tablet, 500 MG PO DAILY, (Reported) Aspirin (Aspirin EC) 81 Mg Tablet.dr, 81 MG PO QHS, (Reported) Atorvastatin Calcium (Atorvastatin Calcium) 80 Mg Tablet, 80 MG PO QHS, (Reported) Cholecalciferol (Vitamin D3) (Vitamin D3) 1,000 Unit Tablet, 1,000 UNITS PO DAILY, (Reported) Cyanocobalamin (Vitamin B-12) (Vitamin B-12) 1,000 Mcg Tablet, 1,000 MCG PO QPM, (Reported) Donepezil HCl (Donepezil HCl) 10 Mg Tablet, 10 MG PO QHS, (Reported) Lisinopril (Lisinopril) 5 Mg Tablet, 5 MG PO QHS, (Reported) Memantine HCl (Memantine HCl) 10 Mg Tablet, 10 MG PO BID, (Reported) Olanzapine (Olanzapine) 2.5 Mg Tablet, 2.5 MG PO BID Polyethylene Glycol 3350 (Miralax) 119 Gm Powder, 6 GM PO DAILY, (Reported) dilute in 8 ounces of water or juice Psyllium Husk (with Sugar) (Metamucil Powder) 575 Gm Powder, 1 PKT PO BID, (Re ported) Vit A/Vit C/Vit E/Zinc/Copper (Preservision Areds Tablet) 1 Each Tablet, 1 TAB PO BID, (Reported) Allergies Coded Allergies: No Known Allergies (Unverified , 05/22/20) PIETER PATEL MD May 24, 2020 10:40
== END 2020-05-24 11:34 | disposition home health service (06) | DRG 57 ==
LOC: M ED 15:39 → M ED INP 19:12 → ENRESERV 21:59 → M MSPAV 23:46
PROVIDERS: ADMIT Internal Medicine; ATTEND Internal Medicine
DX: G30.9 Alzheimer's disease, unspecified (principal); F02.81 Dementia in other diseases classified elsewhere, unspecified severity, with behavioral disturbance; I25.10 Atherosclerotic heart disease of native coronary artery without angina pectoris; I25.2 Old myocardial infarction; I10 Essential (primary) hypertension; M81.0 Age-related osteoporosis without current pathological fracture; Z95.5 Presence of coronary angioplasty implant and graft; E55.9 Vitamin D deficiency, unspecified; Z98.41 Cataract extraction status, right eye; Z98.42 Cataract extraction status, left eye; Z20.828 Contact with and (suspected) exposure to other viral communicable diseases

== ENCOUNTER → 2020-08-01 | Outpatient (REF) | payer MEDICARE, BC ==
[~2020-08-01] MED LIST changes: +AMLO25TA PO; +AMPI500C9 PO; +ASPI1TAB8 PO; +ATOR80TA59 PO; +CYAN100050 PO; +D31000TA2 PO; +DONE10TA90 PO; -ISOVUE-370 76% 100ML VIAL (Q9967) As Ordered ONE; +LISI-898 PO; +MEMA10TA19 PO; +META28.32 PO; +MIRA3350 PO; +OCUVTAB4 PO; +OLAN2.5T25 PO; +QUET50TA3 PO; +VITA-158 PO
[2020-08-01 17:02] LABS: BLOOD UREA NITROGEN 21 MG/DL (7-18); CARBON DIOXIDE LEVEL 30 MEQ/L (21-32); CHLORIDE LEVEL 105 MEQ/L (98-107); CHOLESTEROL LEVEL 143 MG/DL (<200); CHOLESTEROL RISK RATIO 2.234 (<5); CREATININE FOR GFR 0.77 MG/DL (0.55-1.30); GLOMERULAR FILTRATION RATE > 60.0 (>32); GLUCOSE, FASTING 87 MG/DL (70-100); HDL CHOLESTEROL 64 MG/DL (>40); LDL CHOLESTEROL 63 MG/DL (<100); NON-HDL-C 79 MG/DL; POTASSIUM SERUM 4.5 MEQ/L (3.5-5.1); SODIUM LEVEL 141 MEQ/L (136-145); TRIGLYCERIDES LEVEL 82 MG/DL (<150)
[2020-08-01 19:20] LABS: HEMOGLOBIN A1c 5.7 %
== END ==
LOC: M SFHCCLAY 11:48
PROVIDERS: ATTEND Family Medicine
DX: G30.1 Alzheimer's disease with late onset (principal); Z79.899 Other long term (current) drug therapy
CPT/HCPCS: 80048; 80061; 83036; G0463

== ENCOUNTER → 2020-12-05 | Outpatient (REF) | payer MEDICARE, BC | LOC: M SFHCCLAY 12:23 | PROVIDERS: ATTEND Family Medicine | DX: L82.1 Other seborrheic keratosis (principal) ==

== ENCOUNTER → 2021-09-06 | Outpatient (REF) | payer MEDICARE, BC ==
[~2021-09-06] MED LIST changes: -D31000TA2 PO; -LISI-898 PO; +LISI5TAB11 PO; -QUET50TA3 PO; +QUET50TA4 PO; +VITA100093 PO
== END ==
LOC: M SFHCCLAY 12:11
PROVIDERS: ATTEND Family Medicine
DX: G30.1 Alzheimer's disease with late onset (principal); I25.10 Atherosclerotic heart disease of native coronary artery without angina pectoris; H10.13 Acute atopic conjunctivitis, bilateral; E53.8 Deficiency of other specified B group vitamins

== ENCOUNTER 2021-09-15 15:01 | Inpatient (IN) | payer MEDICARE, BC ==
[~2021-09-15] VITALS: Ht 157.5 cm; Wt 67.0 kg
[2021-09-15] MEDS ORDERED: risperiDONE 0.5 MG TAB PO ONE (17:40)
[2021-09-15 19:57] LABS: HEMATOCRIT 38.2 % (36.0-47.0); HEMOGLOBIN 12.9 g/dl (12.0-15.5); MEAN CORPUSCULAR HEMOGLOBIN 29.5 pg (27.0-33.0); MEAN CORPUSCULAR HGB CONC 33.8 g/dl (32.0-36.5); MEAN CORPUSCULAR VOLUME 87.2 fl (80.0-96.0); PLATELET COUNT, AUTOMATED 296 10^3/uL (150-450); RED BLOOD COUNT 4.38 10^6/uL (4.00-5.40); WHITE BLOOD COUNT 8.8 10^3/uL (4.0-10.0)
[2021-09-15 20:20] LABS: AMPHETAMINES LEVEL URINE NEGATIVE (NEGATIVE); BARBITURATES URINE NEGATIVE (NEGATIVE); BENZODIAZEPINES URINE NEGATIVE (NEGATIVE); CANNABINOIDS URINE NEGATIVE (NEGATIVE); COCAINE METABOLITE URINE NEGATIVE (NEGATIVE); METHADONE URINE NEGATIVE (NEGATIVE); OPIATES URINE NEGATIVE (NEGATIVE); PHENCYCLIDINE URINE NEGATIVE (NEGATIVE)
[2021-09-15 20:32] LABS: ACETAMINOPHEN LEVEL < 2.0 UG/ML (10.0-30.0); ALBUMIN 3.6 GM/DL (3.2-5.2); ALT/SGPT 28 U/L (12-78); BILIRUBIN,DIRECT 0.1 MG/DL (0.0-0.2); BILIRUBIN,TOTAL 0.4 MG/DL (0.2-1.0); BLOOD UREA NITROGEN 16 MG/DL (7-18); CALCIUM LEVEL 9.6 MG/DL (8.8-10.2); CARBON DIOXIDE LEVEL 23 MEQ/L (21-32); CHLORIDE LEVEL 107 MEQ/L (98-107); CREATININE FOR GFR 0.82 MG/DL (0.55-1.30); ETHYL ALCOHOL (ETHANOL) < 0.003 % (0.000-0.010); GLOMERULAR FILTRATION RATE > 60.0 (>32); GLUCOSE, FASTING 94 MG/DL (70-100); SALICYLATE LEVEL < 1.7 MG/DL (5.0-30.0); SODIUM LEVEL 140 MEQ/L (136-145); TOTAL PROTEIN 6.4 GM/DL (6.4-8.2)
[2021-09-15 21:15] LABS: RSV AMPLIFICATION NEGATIVE (NEGATIVE)
[2021-09-15] MEDS ORDERED: RISP0.253 PO (21:28)
[2021-09-15] MEDS ORDERED: HOME MED LIST COMPLETE! XX SCH (21:30)
[2021-09-15] MEDS ORDERED: MOM 30ML SUSPENSION UDC PO PRN (23:50)
[2021-09-15] MEDS ORDERED: clonazePAM 0.5 MG TAB PO PRN (23:50)
[2021-09-15] MEDS ORDERED: MAALOX 30 ML SUSP *UDC PO PRN (23:50)
[2021-09-15] MEDS ORDERED: ACETAMINOPHEN TAB 650MG DOSE (2X325MG) PO PRN (23:50)
[2021-09-16] MEDS ORDERED: PILL CUTTER 1 EACH XX PRN (00:30)
[2021-09-16 01:51] LABS: INR 0.93; PROTHROMBIN TIME 12.9 SECONDS (12.7-14.5)
[2021-09-16 01:52] LABS: PARTIAL THROMBOPLASTIN TIME 30.8 SECONDS (25.9-37.0)
[2021-09-16 03:00] VITALS: BP 126/82
[2021-09-16] MEDS: DONEPEZIL 5 MG TAB PO SCH ×2 (03:21→20:24)
[2021-09-16] MEDS: MEMANTINE 5MG TABLET (NAMENDA) PO SCH ×3 (03:21→20:24)
[2021-09-16] MEDS: lisinopriL 5 MG TAB PO SCH ×3 (03:22→21:07)
[2021-09-16 06:00] LABS: HEMATOCRIT 37.5 % (36.0-47.0); HEMOGLOBIN 12.3 g/dl (12.0-15.5); MEAN CORPUSCULAR HEMOGLOBIN 29.4 pg (27.0-33.0); MEAN CORPUSCULAR HGB CONC 32.8 g/dl (32.0-36.5); MEAN CORPUSCULAR VOLUME 89.7 fl (80.0-96.0); PLATELET COUNT, AUTOMATED 287 10^3/uL (150-450); RED BLOOD COUNT 4.18 10^6/uL (4.00-5.40); WHITE BLOOD COUNT 7.2 10^3/uL (4.0-10.0)
[2021-09-16 06:25] LABS: BLOOD UREA NITROGEN 16 MG/DL (7-18); CALCIUM LEVEL 9.4 MG/DL (8.8-10.2); CARBON DIOXIDE LEVEL 27 MEQ/L (21-32); CHLORIDE LEVEL 108 MEQ/L (98-107); GLOMERULAR FILTRATION RATE > 60.0 (>32); GLUCOSE, FASTING 99 MG/DL (70-100); MAGNESIUM LEVEL 2.3 MG/DL (1.8-2.4); SODIUM LEVEL 142 MEQ/L (136-145)
[2021-09-16 06:28] VITALS: BP 104/56
[2021-09-16] MEDS: ENOXAPARIN 40MG/0.4ML SYRINGE (J1650 PER 10MG) SC SCH (09:34)
[2021-09-16] MEDS: DOCUSATE SODIUM 100MG CAPSULE PO SCH ×2 (09:34→20:23)
[2021-09-16] MEDS: MIRALAX *UNIT DOSE* 17GM PACKET PO SCH (09:34)
[2021-09-16] MEDS: METAMUCIL (PSYLLIUM) PACKET PO SCH ×2 (11:53→21:08)
[2021-09-16 14:00] VITALS: BP 141/79
[2021-09-16] MEDS ORDERED: QUEtiapine FUMARATE 25 MG TAB PO SCH (16:00)
[2021-09-16] MEDS: ASPIRIN 81MG ENTERIC TABLET PO SCH (20:24)
[2021-09-16] MEDS: PARoxetine 20MG TABLET PO SCH (20:24)
[2021-09-16] MEDS: ATORVASTATIN 20 MG TAB PO SCH (20:24)
[2021-09-16] MEDS: RAMELTEON 8 MG TAB (ROZEREM) PO SCH (20:24)
[2021-09-16 21:28] VITALS: BP 134/78
[2021-09-16 22:00] VITALS: BP 134/78
[2021-09-17 06:00] VITALS: BP 110/60
[2021-09-17 06:51] LABS: HEMATOCRIT 38.6 % (36.0-47.0); HEMOGLOBIN 12.5 g/dl (12.0-15.5); MEAN CORPUSCULAR HEMOGLOBIN 28.9 pg (27.0-33.0); MEAN CORPUSCULAR HGB CONC 32.4 g/dl (32.0-36.5); MEAN CORPUSCULAR VOLUME 89.4 fl (80.0-96.0); PLATELET COUNT, AUTOMATED 294 10^3/uL (150-450); RED BLOOD COUNT 4.32 10^6/uL (4.00-5.40); WHITE BLOOD COUNT 9.2 10^3/uL (4.0-10.0)
[2021-09-17 07:08] LABS: BLOOD UREA NITROGEN 20 MG/DL (7-18); CALCIUM LEVEL 9.2 MG/DL (8.8-10.2); CARBON DIOXIDE LEVEL 28 MEQ/L (21-32); CHLORIDE LEVEL 109 MEQ/L (98-107); GLOMERULAR FILTRATION RATE > 60.0 (>32); GLUCOSE, FASTING 97 MG/DL (70-100); POTASSIUM SERUM 4.5 MEQ/L (3.5-5.1); SODIUM LEVEL 141 MEQ/L (136-145)
[2021-09-17] MEDS: DOCUSATE SODIUM 100MG CAPSULE PO SCH ×2 (08:48→20:56)
[2021-09-17] MEDS: METAMUCIL (PSYLLIUM) PACKET PO SCH ×2 (08:48→21:11)
[2021-09-17] MEDS: MIRALAX *UNIT DOSE* 17GM PACKET PO SCH ×2 (08:48→20:58)
[2021-09-17] MEDS: MEMANTINE 5MG TABLET (NAMENDA) PO SCH ×2 (08:48→20:57)
[2021-09-17] MEDS: ENOXAPARIN 40MG/0.4ML SYRINGE (J1650 PER 10MG) SC SCH (08:49)
[2021-09-17 14:00] VITALS: BP 111/53
[2021-09-17] MEDS ORDERED: NUPL34CA PO (17:31)
[2021-09-17 19:07] VITALS: BP 132/97
[2021-09-17] MEDS: RAMELTEON 8 MG TAB (ROZEREM) PO SCH (20:56)
[2021-09-17] MEDS: ATORVASTATIN 20 MG TAB PO SCH (20:56)
[2021-09-17] MEDS: PARoxetine 20MG TABLET PO SCH (20:56)
[2021-09-17 20:57] VITALS: BP 140/74
[2021-09-17] MEDS: DONEPEZIL 5 MG TAB PO SCH (20:57)
[2021-09-17] MEDS: ASPIRIN 81MG ENTERIC TABLET PO SCH (20:57)
[2021-09-17] MEDS: QUEtiapine FUMARATE 25 MG TAB PO SCH (20:57)
[2021-09-17] MEDS: lisinopriL 5 MG TAB PO SCH (20:57)
[2021-09-18 06:20] VITALS: BP 114/60
[2021-09-18 06:35] LABS: HEMATOCRIT 37.4 % (36.0-47.0); HEMOGLOBIN 12.4 g/dl (12.0-15.5); MEAN CORPUSCULAR HEMOGLOBIN 29.6 pg (27.0-33.0); MEAN CORPUSCULAR HGB CONC 33.2 g/dl (32.0-36.5); MEAN CORPUSCULAR VOLUME 89.3 fl (80.0-96.0); PLATELET COUNT, AUTOMATED 275 10^3/uL (150-450); RED BLOOD COUNT 4.19 10^6/uL (4.00-5.40); WHITE BLOOD COUNT 7.3 10^3/uL (4.0-10.0)
[2021-09-18 06:58] LABS: BLOOD UREA NITROGEN 19 MG/DL (7-18); CALCIUM LEVEL 9.2 MG/DL (8.8-10.2); CARBON DIOXIDE LEVEL 26 MEQ/L (21-32); CHLORIDE LEVEL 109 MEQ/L (98-107); CREATININE FOR GFR 0.74 MG/DL (0.55-1.30); GLOMERULAR FILTRATION RATE > 60.0 (>32); GLUCOSE, FASTING 99 MG/DL (70-100); POTASSIUM SERUM 4.2 MEQ/L (3.5-5.1); SODIUM LEVEL 141 MEQ/L (136-145)
[2021-09-18] MEDS: MEMANTINE 5MG TABLET (NAMENDA) PO SCH (08:19)
[2021-09-18] MEDS: DOCUSATE SODIUM 100MG CAPSULE PO SCH (08:19)
[2021-09-18] MEDS: QUEtiapine FUMARATE 25 MG TAB PO SCH (08:19)
[2021-09-18] MEDS: ENOXAPARIN 40MG/0.4ML SYRINGE (J1650 PER 10MG) SC SCH (08:20)
[2021-09-18] MEDS: MIRALAX *UNIT DOSE* 17GM PACKET PO SCH (08:20)
[2021-09-18] MEDS ORDERED: PARO20TA3 PO (10:24)
[2021-09-18] MEDS ORDERED: QUET1TAB17 PO (10:24)
[2021-09-18] MEDS: METAMUCIL (PSYLLIUM) PACKET PO SCH (11:54)
[2021-09-18] MEDS ORDERED: SELF1KIT MC (14:54)
[2021-09-18] MEDS ORDERED: ROZE8TAB16 PO (15:11)
== END 2021-09-18 15:38 | disposition home or self-care (01) | DRG 57 ==
LOC: M ED 15:01 → M ED INP 23:47 → ENRESERV 09-16 00:43 → M MSPAV 09-16 03:11
PROVIDERS: ADMIT Family Medicine; ATTEND General Practice
DX: G30.9 Alzheimer's disease, unspecified (principal); F02.80 Dementia in other diseases classified elsewhere, unspecified severity, without behavioral disturbance, psychotic disturbance, mood disturbance, and anxiety; I25.10 Atherosclerotic heart disease of native coronary artery without angina pectoris; I10 Essential (primary) hypertension; G31.83 Neurocognitive disorder with Lewy bodies; E78.5 Hyperlipidemia, unspecified; R25.1 Tremor, unspecified; Z86.73 Personal history of transient ischemic attack (TIA), and cerebral infarction without residual deficits; Z95.5 Presence of coronary angioplasty implant and graft; Z98.41 Cataract extraction status, right eye; Z98.42 Cataract extraction status, left eye; K59.09 Other constipation; Z79.82 Long term (current) use of aspirin; Z79.899 Other long term (current) drug therapy

== ENCOUNTER → 2021-10-25 | Outpatient (REF) | payer MEDICARE, BC ==
[~2021-10-25] MED LIST changes: +NUPL34CA PO; +PARO20TA3 PO; +QUET1TAB17 PO; +RISP0.253 PO; +ROZE8TAB16 PO; +SELF1KIT MC
[2021-10-25 16:01] LABS: APPEARANCE, URINE HAZY (CLEAR); BACTERIA, URINE AUTO 1+ (NEGATIVE); BILIRUBIN, URINE AUTO NEGATIVE (NEGATIVE); BLOOD, URINE BLOOD NEGATIVE (NEGATIVE); CALCIUM OXALATE CRYSTALS SMALL; COLOR, URINE YELLOW (YELLOW); GLUCOSE, URINE (UA) AUTO NEGATIVE (NEGATIVE); KETONE, URINE AUTO NEGATIVE (NEGATIVE); LEUKOCYTE ESTERASE, URINE AUTO 1+ (NEGATIVE); MUCUS, URINE SMALL (NEGATIVE); NITRITE, URINE AUTO NEGATIVE (NEGATIVE); PROTEIN, URINE AUTO NEGATIVE (NEGATIVE); RBC, URINE AUTO 2 /HPF (0-3); SPECIFIC GRAVITY URINE AUTO 1.016 (1.002-1.035); SQUAMOUS EPITHELIAL CELL UR AU 0 /HPF (0-6); UROBILINOGEN, URINE AUTO 0.2 mg/dL (0.0-2.0); WBC, URINE AUTO 10 /HPF (0-3)
== END ==
LOC: M SFHCCLAY 15:30
PROVIDERS: ATTEND Family Medicine
DX: R30.0 Dysuria (principal)

== ENCOUNTER → 2021-11-06 | Outpatient (REF) | payer MEDICARE, BC | LOC: M SFHCCLAY 12:08 | PROVIDERS: ATTEND Family Medicine | DX: R82.81 Pyuria (principal) ==

== ENCOUNTER → 2022-01-09 | Outpatient (CLI) | payer MEDICARE, BC ==
[~2022-01-09] MED LIST changes: +ISOVUE-300 61% 50ML VIAL As Ordered ONE; +LIDOCAINE 1% MDV 20ML VIAL As Ordered ONE; +TRIAMCINOLONE ACETONIDE SUSP 40 MG/ML VIAL (J3301) As Ordered ONE
== END ==
LOC: M RADPRO 13:08
PROVIDERS: ATTEND Orthopaedic Surgery
DX: M16.11 Unilateral primary osteoarthritis, right hip (principal)
CPT/HCPCS: 20610; 76000; J3301; Q9967

== ENCOUNTER → 2022-01-26 | Outpatient (REF) | payer MEDICARE, BC ==
[~2022-01-26] MED LIST changes: -ISOVUE-300 61% 50ML VIAL As Ordered ONE; -LIDOCAINE 1% MDV 20ML VIAL As Ordered ONE; -TRIAMCINOLONE ACETONIDE SUSP 40 MG/ML VIAL (J3301) As Ordered ONE
[2022-01-26 23:09] LABS: APPEARANCE, URINE MANUAL CLEAR (CLEAR); COLOR, URINE MANUAL LT YELLOW (YELLOW)
[2022-01-26 23:10] LABS: BILIRUBIN, URINE MANUAL NEGATIVE (NEGATIVE); GLUCOSE, URINE (UA) MANUAL NEGATIVE (NEGATIVE); KETONE, URINE MANUAL NEGATIVE (NEGATIVE); PH,URINE MAN 5.5 UNITS (5.0 - 7.0); PROTEIN, URINE MANUAL NEGATIVE (NEGATIVE); UROBILINOGEN, URINE MANUAL NORMAL (NORMAL)
[2022-01-26 23:11] LABS: BLOOD URINE MANUAL NEGATIVE (NEGATIVE); LEUKOCYTE ESTERASE, URINE MAN POSITIVE (NEGATIVE); NITRITE, URINE MANUAL NEGATIVE (NEGATIVE)
[2022-01-26 23:30] LABS: AMORPHOUS SEDIMENT, URINE SMALL AMOUNT (NEGATIVE); BACTERIA, URINE SMALL AMOUNT; HYALINE CAST, URINE NONE SEEN /lpf (0-1); RBC, URINE 0-1 /hpf (0-3); SQUAMOUS EPITHELIAL CELL URINE SMALL AMOUNT /hpf (SMALL AMT); TRANSITIONAL EPI CELLS, URINE SMALL AMOUNT /hpf; WBC, URINE 15-20 /hpf (0-3)
== END ==
LOC: M LAB REF 22:58
PROVIDERS: ATTEND Family Medicine
DX: N39.0 Urinary tract infection, site not specified (principal)